=== PATIENT | male | born 1975 ===

== ENCOUNTER → 2021-04-25 11:16 | Outpatient (CLI) | payer OTHER, SELFPAY ==
--- NOTE | ~2021-04-25 | XR_ITS ---
EXAMINATION: XR foot RT min 3V DATE: 04/25/2021 11:46 INDICATION: Right ankle pain. TECHNIQUE: 4 views of right foot were obtained. COMPARISON: None. FINDINGS: Bone alignment is normal. No fracture. There is mild osteoarthrosis of first metatarsophala ngeal joint. There is an enthesophyte at posterior aspect of calcaneal tuberosity. There is an ankle joint effusion. IMPRESSION: 1. Mild osteoarthritis of first metatarsophalangeal joint. 2. Ankle joint effusion. Reviewed, dictated and finalized at location A.
--- NOTE | ~2021-04-25 | XR_ITS ---
EXAMINATION: XR ankle RT min 3V DATE: 04/25/2021 11:46 INDICATION: Right ankle pain. TECHNIQUE: 4 views of right ankle were obtained. COMPARISON: None. FINDINGS: Bone alignment is normal. No fracture. Joint spaces are well maintained. There is an enthes ophyte at posterior aspect of calcaneal tuberosity. There is ankle joint effusion. Ankle soft tissue swelling is noted. IMPRESSION: 1. Ankle joint effusion. Reviewed, dictated and finalized at location A. IMPRESSION: 1. Ankle joint effusion.
== END ==
PROVIDERS: PCP Pediatrics; Visit Provider Nurse Practitioner Family
DX: M25.471 Effusion, right ankle (principal); M19.071 Primary osteoarthritis, right ankle and foot
CPT/HCPCS: 73610; 73630

== ENCOUNTER 2023-08-12 09:22 | Outpatient (CLI) | payer OTHER, SELFPAY ==
--- NOTE | ~2023-08-12 | XR_ITS ---
EXAMINATION: [id number] INDICATION: Right chest wall pain TECHNIQUE: A frontal view of the chest and 3 views of the right ribs were obtained. COMPARISON: None. FINDINGS: The lungs are free of acute opacities. No pleural effusion or pneumothorax. The cardiomedia stinal silhouette is normal. No displaced right rib fracture is identified. IMPRESSION: 1. No acute cardiopulmonary abnormality or evidence of displaced rib fracture. Reviewed, dictated and finalized at location L. D CHIEF
--- NOTE | ~2023-08-12 | XR_ITS ---
EXAMINATION: XR shoulder LT min 2V INDICATION: Left shoulder pain TECHNIQUE: Four views of the left shoulder are submitted. COMPARISON: None FINDINGS: Normal alignment. No fracture. Glenohumeral and acromioclavicular joint spaces are normal. Soft tissues are unremarkable. IMPRESSION: 1. No acute osseous abnormality. Reviewed, dictated and finalized at location L. [employer]ACH[employer]
== END 2023-08-12 09:23 ==
PROVIDERS: PCP Pediatrics; Visit Provider Pediatrics
DX: M77.8 Other enthesopathies, not elsewhere classified (principal); R07.89 Other chest pain
CPT/HCPCS: 71101; 73030